=== PATIENT | female | born 1945 | race Caucasian/White ===

== ENCOUNTER 2020-04-16 15:15 | Emergency (ER) | payer OTHER ==
[~2020-04-16] VITALS: Ht 160 cm; Wt 72.6 kg
[~2020-04-16 15:15] MED LIST: LEVOTHROID125 MCG; LISINOPRIL40 MG; ZOCOR20 MG
[2020-04-16] MEDS ORDERED: PRAVASTATIN SOD20 MG PO (15:37)
== END 2020-04-16 18:41 | disposition home or self-care (01) ==
LOC: ER 15:15
DX: N61.0 Mastitis without abscess (principal); Z20.828 Contact with and (suspected) exposure to other viral communicable diseases